=== PATIENT | male | born 1965 | race Caucasian/White ===

== ENCOUNTER 2016-11-02 05:59 | Day surgery (SDC) | payer OTHER ==
[~2016-11-02] VITALS: Ht 167.6 cm; Wt 74.8 kg
[2016-11-02] MEDS ORDERED: ceFAZolin 1,000 MG VIAL ONE (06:58)
[2016-11-02] MEDS ORDERED: BUPIVACAINE-MPF/EPI 0.25% 30 ML VIAL INJ ONE (06:58)
[2016-11-02] MEDS ORDERED: ONDANSETRON 4 MG/2 ML VIAL ONE (07:40)
[2016-11-02] MEDS ORDERED: SEVOFLURANE 250 ML BTL INH ONE (07:40)
[2016-11-02] MEDS ORDERED: PROPOFOL 200 MG/20 ML VIAL IV ONE (07:40)
[2016-11-02] MEDS ORDERED: DEXAMETHASONE 4 MG/ML VIAL ONE (07:40)
[2016-11-02] MEDS ORDERED: fentaNYL 0.05 MG/ML VIAL ONE (07:48)
[2016-11-02] MEDS ORDERED: MORPHINE SULFATE 4 MG/ML SYR ONE ×3 (07:48→09:40)
[2016-11-02] MEDS ORDERED: MIDAZOLAM 2 MG/2 ML VIAL ONE (07:48)
[2016-11-02] MEDS ORDERED: MORPHINE SULFATE 4 MG/ML SYR IVP PRN (08:25)
[2016-11-02] MEDS ORDERED: MIDAZOLAM 2 MG/2 ML VIAL IV ONE (08:25)
[2016-11-02] MEDS ORDERED: METOCLOPRAMIDE 10 MG/2 ML INJ VIAL IVP PRN (08:25)
[2016-11-02] MEDS ORDERED: MORPHINE SULFATE 2 MG/ML SYR IVP PRN ×2 (08:25→09:05)
[2016-11-02] MEDS ORDERED: HYDROmorphone 1 MG/ML AMP IVP PRN (09:05)
[2016-11-02] MEDS ORDERED: MORPHINE SULFATE 4 MG/ML SYR IV PRN (09:05)
[2016-11-02] MEDS ORDERED: HYDROcodone/APAP 5/325 MG 1 TAB TAB PO PRN (09:05)
[2016-11-02] MEDS ORDERED: ONDANSETRON 4 MG/2 ML VIAL IV PRN (09:05)
[2016-11-02] MEDS: MORPHINE SULFATE 4 MG/ML SYR IVP PRN ×2 (09:21→09:39)
== END 2016-11-02 13:05 | disposition home or self-care (01) ==
LOC: MDS 05:59 → MMU 06:00 → EDBD 07:30 → MDS 13:05
PROVIDERS: ATTEND Surgery
DX: K40.90 Unilateral inguinal hernia, without obstruction or gangrene, not specified as recurrent (principal)
CPT/HCPCS: 49505; 71010; 93005; J0690; J1100; J1170; J2250; J2270; J2405; J2704; J3010; J3490; J7060

== ENCOUNTER 2021-04-17 07:49 | Day surgery (SDC) | payer OTHER, SELFPAY ==
[~2021-04-17] VITALS: Ht 154.9 cm; Wt 97.1 kg
[2021-04-17] MEDS ORDERED: fentaNYL citrate 0.05 MG/ML VIAL ONE (12:21)
[2021-04-17] MEDS ORDERED: LIDOCAINE 2% 100 MG/5 ML UJET TP ONE (12:21)
[2021-04-17] MEDS: fentaNYL citrate 0.05 MG/ML VIAL IVP ONE (12:32)
[2021-04-17] MEDS: LIDOCAINE 2% 100 MG/5 ML UJET TP ONE (12:35)
[2021-04-17] MEDS ORDERED: MIDAZOLAM 5 MG/5 ML VIAL ONE (12:52)
[2021-04-17] MEDS: MIDAZOLAM 2 MG/2 ML VIAL IVP ONE (12:55)
[2021-04-17] MEDS ORDERED: SIMETHICONE 40 MG/0.6 ML ONE (13:09)
== END 2021-04-17 14:06 | disposition home or self-care (01) ==
LOC: MDS 07:49 → MMU 07:50 → MDS 14:06
PROVIDERS: ATTEND Internal Medicine Gastroenterology
DX: K62.5 Hemorrhage of anus and rectum (principal); K57.30 Diverticulosis of large intestine without perforation or abscess without bleeding; K64.8 Other hemorrhoids; Z86.010 Personal history of colon polyps; Z20.822 Contact with and (suspected) exposure to COVID-19; Z79.899 Other long term (current) drug therapy
CPT/HCPCS: 45378; 88305; J2250; J3010; U0003